=== PATIENT | male | born 1965 | race Caucasian/White ===

== ENCOUNTER → 2022-12-27 12:04 | Outpatient (BNVA) | payer SELFPAY | PROVIDERS: Visit Provider Nurse Practitioner Family | DX: J06.9 Acute upper respiratory infection, unspecified (principal); R73.03 Prediabetes | CPT/HCPCS: 80053; 83036; 85025 ==

== ENCOUNTER 2023-08-07 09:44 | Observation (INO) | payer SELFPAY ==
[2023-08-07] VITALS (8 sets, daily range): BP systolic 104–153; BP diastolic 73–116; PULSE 79–117; RESP 16–22; TEMP 36.7–37.1; O2SAT 95–100; BMI 33.3; BMI 33.2
--- NOTE | 2023-08-07 12:05 | PC.NURSE ---
per lab, attempted to draw x2. pt refused further lab draw until IV start
--- NOTE | 2023-08-07 12:24 | CT_ITS ---
WS: [id number] CT ABDOMEN AND PELVIS WITH CONTRAST HISTORY: abd pain TECHNIQUE: Imaging performed of the abdomen and pelvis with IV contrast. Single phase imaging of the abdomen. Coronal and sagittal reformats are submitted. All CT scans at [facility] use at [address] one of these dose optimization techniques: automated exposure control; mA and/or kV adjustment per patient size (includes targeted exams where dose is matched to clinical indication); or iterative re construction. IV CONTRAST: Omnipaque 350; 100 mL IV. Oral contrast: No DLP: 878.75 mGy.cm COMPARISON: None available. Lower thorax: Lungs are clear. Heart is normal size. Small hiatal hernia. Liver/biliary system: Focal fatty sparing along the falciform ligament. No duct dilatation. Gallbladder: Normal. No gallstones or wall thickening. No pericholecystic fluid. Pancreas: Normal size pancreas and pancreatic duct. No adjacent inflammation. Spleen: Normal size spleen. No mass or infarct. Adrenal glands: Normal. Right kidney: Too small to characterize cortical hypodensities. No obstruction or solid mass. Left kidney: Normal. Aorta: Mild atherosclerosis with no aneurysm. Lymphadenopathy: There is several small but enlarged and hypervascular lymph nodes in the RIGHT upper quadrant associated with the duodenal C-loop. Largest lymph node measures 1.6 cm. Free fluid: None. GI tract: Stomach is nondistended. In the duodenal C-loop there is abnormal enhancement and submucosa l edema. There is a small ulceration extending into the submucosa. This ulceration contains air and a small amount of fluid. There is duodenitis. There are adjacent small lymph nodes. These lymph nodes are hypervascular and increased in number. The remaining GI tract is negative. Abdominal wall: Unremarkable abdominal wall. No hernia. Pelvis: No free fluid or adenopathy within the pelvis. Bones: Prior LEFT hip arthroplasty. Osteonecrosis RIGHT femoral head. IMPRESSION: 1. Abnormal duodenum. Duodenal inflammation within acute ulceration. There is no free air but there are several small but enlarged hypervascular lymph nodes in the RIGHT upper quadrant. No perforation is evident. There is no free air. No abscess. As patient's acute episode of duodenitis/ulceration imp roves consider evaluation by endoscopy to exclude an underlying mass. 2. No additional acute abnormalities.
[2023-08-07 12:51] LABS: Basophils # 0.1 10^3/uL (0.0-0.1); Basophils % 0.6 %; Eosinophils # 0.1 10^3/uL (0.0-0.8); Eosinophils % 1.4 %; Lymphocytes # 2.1 10^3/uL (0.8-4.8); Lymphocytes % 24.2 %; Mean Corpuscular HGB Conc 35.6 g/dL (30-55); Mean Corpuscular Hemoglobin 30.9 pg (27-33); Mean Corpuscular Volume 86.7 fl (82-101); Mean Platelet Volume 11.1 fL (7.4-10.4); Monocytes # 0.8 10^3/uL (0.2-0.9); Monocytes % 9.6 %; Neutrophils # 5.46 10^3/uL (1.8-7.7); Neutrophils % 63.8 %; Nucleated Red Blood Cells % 0 %; Platelet Count 264 10^3/cmm (157-399); Red Blood Count 4.73 10^6/uL (3.85-5.65); Red Cell Distribution Width 11.7 % (12.1-15.1); White Blood Count 8.55 10^3/uL (3.29-11.43)
[2023-08-07 13:02] LABS: Alanine Aminotransferase 32 U/L (0-41); Albumin Level 4.1 g/dL (3.5-5.2); Alkaline Phosphatase 61 U/L (40-130); Anion Gap 15.6 (5-19); Aspartate Amino Transferase 19 U/L (0-40); Blood Urea Nitrogen 16 mg/dL (6-20); Calcium 9.6 mg/dL (8.5-10.5); Carbon Dioxide 28 mmol/L (22-29); Chloride 93 mmol/L (98-107); Creatinine Clr Calc Pharmacy 93.1154; Globulin 3.7 g/dL (1.3-4.6); Glucose 106 mg/dL (65-115); Lipase 85 U/L (13-60); Osmolality Calculated 278 mOsm/kg (285-295); Potassium 3.6 mmol/L (3.5-5.1); Sodium 133 mmol/L (136-145); Total Bilirubin 0.6 mg/dL (0.15-1.2); Total Protein 7.8 g/dL (6.6-8.7)
--- NOTE | 2023-08-07 13:08 | ED_ITS ---
HPI - Nausea/Vomiting/Diarrhea 2 General: Chief complaint: Nausea/Vomiting/Diarrhea Stated complaint: abd pain Time Seen by Provider: 08/07/23 12:22 History of Present Illness: 57-year-old male presents emerged part w ith complaints of intermittent nausea and vomiting for the previous 3 weeks. He states that he has not been able to keep anything down for the previous 8 days. He states that 2 or 3 days ago he felt something pull in the upper part of his stomach after he had an episode of nausea and vomiting and states that he had a tearing type sensation and since that time he has not been able to keep anything down whatsoever. He states he also feels like he has had dark-colored stools but states he is not noted any active bleeding. He states he currently feels nauseated. He denies dizziness or lightheaded feeling. He states his current discomfort is a 4 out of 10. Associated nausea: Yes Associated symtoms: Reports nausea Review of Systems 2 General: Reports: 10 or more systems reviewed and unremarkable except in HPI and below GI: Reports: abdominal pain, nausea and vomiting Physical Exam 2 Narrative: EXAM NARRATIVE: Constitutional: the patient appears well nourished and of normal development. Vital signs as documented. No acute distress at present. Alert and oriented-to person, place, time and situation. Head, eyes, ears, nose, mouth, throat: Normocephalic, atraumatic. Pupils-equal, round, reactive to light. No scleral icterus. Normal-appearing external ears. Normal appearing nasal turbinates, no drainage. No obvious oral lesions, posterior oropharynx without erythema or exudates. Neck: Supple, trachea is midline, no lymphadenopathy, no jugular venous distension, thyromegaly, or carotid bruits. Carotid upstrokes are brisk bilaterally. Lungs: clear to auscultation to all lung lewis. Symmetrical rise and fall of chest, no obvious signs of increased work of breathing at present. Cardiac: Regular rate and rhythm, positive S1, S2. No murmurs, rubs or gallops that I can appreciate Abdomen: Soft, slightly tender to palpation to the epigastric region., normal active bowel sounds to all quadrants. No palpable masses, no organomegaly and abdominal bruits. Extremities: 2+ pulses in the upper extremities that are equal bilaterally, 2+ pulses in the lower extremities that are equal bilaterally. Non-edematous. Moves all extremities well, sensation to all extremities are noted. Skin: Warm, dry, intact. Course 2 Vital Signs: Vital signs: Vital Signs Temperature 98.0 F 08/07/23 09:58 Pulse Rate 96 08/07/23 15:02 Respiratory Rate 17 08/07/23 09:58 Blood Pressure 135/82 08/07/23 15:02 Pulse Oximetry 99 08/07/23 15:02 Oxygen Delivery Me thod Room Air 08/07/23 15:02 MDM - Nausea/Vomiting/Diarrhea Medical Decision Making Physical exam completed and documented, I will obtain laboratory evaluation to include a CBC, CMP, lipase, urinalysis, and a CT scan of the patient's abdomen pelvis to evaluate for possible differential diagnosis of bowel obstruction, incarcerated hernia, abdominal wall strain, abdominal wall hematoma, constipation, gastroenteritis, colitis, pancreatitis. I did speak with the general surgeon Dr. Ruiz regarding the patient's presentation and laboratory and radiographic findings and he stated he would follow-up with the patient outpatient requested I contact the internal medicine service to request admission to the hospitalist for additional evaluation and treatment. Medical Records I reviewed the patient's medical records. Lab Data I reviewed the patient's lab results. 08/07/23 12:40 08/07/23 12:40 Laboratory Results WBC 8.55 10^3/uL (3.29-11.43) 08/07/23 12:40 RBC 4.73 10^6/uL (3.85-5.65) 08/07/23 12:40 Hgb 14.60 g/dL (11.27-16.99) 08/07/23 12:40 Hct 41.0 % (37-53) 08/07/23 12:40 MCV 86.7 fl (82-101) 08/07/23 12:40 MCH 30.9 pg (27-33) 08/07/23 12:40 MCHC 35.6 g/dL (30-55) 08/07/23 12:40 RDW 11.7 % (12.1-15.1) L 08/07/23 12:40 Plt Count 264 10^3/cmm (157-399) 08/07/23 12:40 MPV 11.1 fL (7.4-10.4) H 08/07/23 12:40 Neut % (Auto) 63.8 % 08/07/23 12:40 Lymph % (Auto) 24.2 % 08/07/23 12:40 Nicholas % (Auto) 9.6 % 08/07/23 12:40 Eos % (Auto) 1.4 % 08/07/23 12:40 Baso % (Auto) 0.6 % 08/07/23 12:40 Neut # (Auto) 5.46 10^3/uL (1.8-7.7) 08/07/23 12:40 Lymph # (Auto) 2.1 10^3/uL (0.8-4.8) 08/07/23 12:40 Nicholas # (Auto) 0.8 10^3/uL (0.2-0.9) 08/07/23 12:40 Eos # (Auto) 0.1 10^3/uL (0.0-0.8) 08/07/23 12:40 Baso # (Auto) 0.1 10^3/uL (0.0-0.1) 08/07/23 12:40 Nucleated RBC % (auto) 0 % 08/07/23 12:40 Nucleated RBCs # 0.0 /100WBC 08/07/23 12:40 Sodium 133 mmol/L (136-145) L 08/07/23 12:40 Potassium 3.6 mmol/L (3.5-5.1) 08/07/23 12:40 Chloride 93 mmol/L (98-107) L 08/07/23 12:40 Carbon Dioxide 28 mmol/L (22-29) 08/07/23 12:40 Anion Gap 15.6 (5-19) 08/07/23 12:40 BUN 16 mg/dL (6-20) 08/07/23 12:40 Creatinine 1.0 mg/dL (0.7-1.2) 08/07/23 12:40 GFR Calculation 77.0 mL/min (90-130) L 08/07/23 12:40 Glucose 106 mg/dL (65-115) 08/07/23 12:40 Calculated Osmolality 278 mOsm/kg (285-295) L 08/07/23 12:40 Calcium 9.6 mg/dL (8.5-10.5) 08/07/23 12:40 Total Bilirubin 0.6 mg/dL (0.15-1.2) 08/07/23 12:40 AST 19 U/L (0-40) 08/07/23 12:40 ALT 32 U/L (0-41) 08/07/23 12:40 Alkaline Phosphatase 61 U/L (40-130) 08/07/23 12:40 Total Protein 7.8 g/dL (6.6-8.7) 08/07/23 12:40 Albumin 4.1 g/dL (3.5-5.2) 08/07/23 12:40 Globulin 3.7 g/dL (1.3-4.6) 08/07/23 12:40 Lipase 85 U/L (13-60) H 08/07/23 12:40 All radiology interpretation(s) finalized by discharge Discharge Plan Discharge Patient Disposition: Admitted As Inpatient Clinical Impression: Duodenal ulcer, Duodenitis, Abdominal pain Condition: Stable Prescriptions: No Action amoxicillin-pot clavulanate 875-125 mg tablet 1 tab PO BID Qty: 14 0RF Coding Level of Care Code ED 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
[2023-08-07] MEDS: iohexol 350 mg/mL 500 mL Btl (per mL) IV (13:20)
[2023-08-07] MEDS: ondansetron 2 mg/ML SDV 2 mL 4 MG IVP (13:31)
[2023-08-07] MEDS: sodium chloride 0.9% 1,000 ML 999 ML IV (13:32)
[2023-08-07] MEDS: pantoprazole 40 mg SDV IVP ×2 (14:55→21:05)
[2023-08-07] MEDS: sucralfate 1 gm Tablet PO (14:57)
[2023-08-07] MEDS: piperacillin-tazobactam 3.375 GM in sodium chloride 0.9% (plus) 50 ML IV ×2 (14:59→23:31)
--- NOTE | 2023-08-07 15:13 | PC.PHAR ---
PT STATES HE TAKES NO PRESCRIPTION OR OTC MEDICATIONS-
--- NOTE | 2023-08-07 15:15 | PM.HP ---
Providers/Chief Complaint Chief Complaint: abd pain History of Present Illness Roc Gallegos is a 57 year old male with no significant past medical history, who presents to [facility] due to feeling nausea, vomiting, severe GERD like symptoms abdominal pain. Currently patient tells me that for the last 2 days he has had a lot of abdominal nausea, vomiting, severe acid reflux like symptoms, epigastric discomfort, no smoking history does chew tobacco does use marijuana no alcohol history, denies using any NSAIDs, he has never had a colonoscopy he does report episodes of black tarry stools, no family history of colon cancer Review of Systems Const: Denies: fever(s) Card: Denies: chest pain Resp: Denies: dyspnea GI: Reports: abdominal pain Medications/Allergies Home Medications Medication Instructions Recorded Confirmed Last Taken Type No Known Home Medications 08/07/23 08/07/23 Unknown History Allergies Allergy/AdvReac Type Severity Reaction Status Date / Time No Known Allergies Allergy Verified 08/07/23 15:13 PFSH Acute PFSH: Medical History (Updated 08/07/23 @ 15:20 by Bull Graham MD) No pertinent past medical history Surgical History (Updated 08/07/23 @ 15:17 by Bull Graham MD) History of left hip replacement Family History (Updated 08/07/23 @ 15:17 by Bull Graham MD) Father Renal cancer Father Lung cancer Social History (Updated 08/07/23 @ 15:18 by Bull Graham MD) Smoking and tobacco/nicotine status: never used tobacco/nicotine Alcohol intake: current Alcohol intake frequency: few times a month Substance/Drug Use: never Vitals/I&O/Wt Last Vital Signs Temp 98.0 F 08/07/23 09:58 Pulse 96 08/07/23 15:02 Resp 17 08/07/23 09:58 BP 135/82 08/07/23 15:02 Pulse Ox 99 08/07/23 15:02 O2 Del Method Room Air 08/07/23 15:02 08/07/23 08/07/23 08/07/23 06:59 14:59 22:59 Intake Total 1000 / 1000 Balance 1000 / 1000 Weight last 48 hrs Weight 99.337 kg Physical Exam Const: COMMON NORMALS: no acute distress and patient oriented x3 HENMT: COMMON NORMALS: normocephalic HEAD & SCALP: normocephalic Neck/C-Spine: COMMON NORMALS: no JVD Resp: COMMON NORMALS: normal respiratory effort, No retractions, No use of accessory muscles and clear to auscultation bilaterally AUSCULTATION: clear to auscultation bilaterally Cardio: COMMON NORMALS: no JVD, regular rate, regular rhythm, S1 normal heart sound present and S2 normal heart sound present RATE: regular rate RHYTHM: regular rhythm HEART SOUNDS: S1 normal heart sound present and S2 normal heart sound present GI: COMMON NORMALS: Normal to inspection, nondistended, normoactive bowel sounds present, Soft to palpation and non-tender PALPATION: Yes Soft to palpation and Yes No hepatosplenomegaly present Extremity: COMMON NORMALS: no calf tenderness and no pedal edema Neuro: COMMON NORMALS: patient oriented x3, CN's II-XII intact bilaterally and moves all extremities Psych: COMMON NORMALS: mental status grossly normal Data 08/07/23 12:40 08/07/23 12:40 A&P Assessment and plan (1) Duodenal ulcer: (2) Duodenitis: (3) Abdominal pain: Qualifiers: Abdominal location: epigastric Qualified Code(s): R10.13 - Epigastric pain (4) GI bleed: Plan Abdominal pain ? With severe GERD like symptoms, nausea, vomiting, black tarry stools, epigastric discomfort ? CT scan ?IMPRESSION: 1. Abnormal duodenum. Duodenal inflammation within acute ulceration. There is no free air but there are several small but enlarged hypervascular lymph nodes in the RIGHT upper quadrant. No perforation is evident. There is no free air. No abscess. As patient's acute episode of duodenitis/ulceration improves consider evaluation by endoscopy to exclude an underlying mass. 2. No additional acute abnormalities ? Concerns for duodenitis duodenal ulcer ? Plan ? Keep on clear liquids for now ? Protonix 40 IV twice daily ? Carafate 1 g every 6 hours ? Serial abdominal exams ? Monitor hemoglobin ? Iron studies ? code status DNR/DNI, confirmed with patient multiple times, he says his has passed, and kids are out of state living family life ? SCDs for DVT prophylaxis, Lovenox relatively contraindicated given concerns for GI bleed Attestations Medical Necessity Statement*: Patient requires hospitalization, outpatient observation, for duodenitis, duodenal ulcer, abdominal pain, nausea vomiting, black tarry stools, Diagnoses Duodenal ulcer K26.9 Duodenitis K29.80 Abdominal pain R10.13 Abdominal location: epigastric GI bleed K92.2
[2023-08-07 15:37] LABS: Erythrocyte Sedimentation Rate 9 mm/hr (0-10)
[2023-08-07 15:57] LABS: C Reactive Protein 25.7 mg/L (0.0-4.9); Ferritin 844 ng/mL (30-400); Iron 26 ug/dL (59-158)
[2023-08-07 15:59] LABS: INR 0.95 (0.8-1.2)
[2023-08-07 16:04] LABS: Procalcitonin 0.07 ng/mL (0-0.5)
[2023-08-07 17:19] LABS: Add Urine Microscopic? YES; Bilirubin Urine Neg (Negative); Blood Urine Neg (Negative); Glucose Urine UA Norm (Normal); Ketones Urine 1+ (Negative); Leukocyte Esterase Urine Negative (Negative); Nitrate Urine Negative (Negative); Protein Urine 1+ (Negative); Specific Gravity, Urine 1.015 (1.005-1.030); Urine Appearance Clear (CLEAR); Urine Color Yellow (Yellow); Urobilinogen Urine Norm (Negative); pH Urine 5 (5-7)
--- NOTE | 2023-08-07 17:19 | P.CONIM_ITS ---
Providers/Reason For Consult 2 Consulting Physician/Specialty*: General surgery Reason for Consult*: Duodenal ulcer with duodenitis Attending Physician: Bull Graham MD History of Present Illness History of Present Illness Roc Gallegos is a 57 year old male who presents to the emergency department complaining about 3 to 4 months of epigastric abdominal pain that has progressively worsened and has been associated with emesis, poor p.o. tolerance and dark stools. Patient explained that since January 2023 he has been having some significant upper abdominal pain that has been intermittent in nature but over the last 2 to 3 months it has become persistent, patient has been at different hospitals numerous times where he has received IV hydration and immediately sent home without additional workup and therefore since his symptoms have been worsening and he is unable to tolerate p.o. he decided to present to our hospital. Review of Systems 2 General: Reports: 10 or more systems reviewed and unremarkable except in HPI and below Medications/Allergies Home Medications Medication Instructions Recorded Confirmed Last Taken Type No Known Home Medications 08/07/23 08/07/23 Unknown History Allergies Allergy/AdvReac Type Severity Reaction Status Date / Time No Known Allergies Allergy Verified 08/07/23 15:13 PFSH Acute 2 PFSH: Medical History (Updated 08/07/23 @ 15:20 by Bull Graham MD) No pertinent past medical history Surgical History (Updated 08/07/23 @ 15:17 by Bull Graham MD) History of left hip replacement Family History (Updated 08/07/23 @ 15:17 by Bull Graham MD) Father Renal cancer Father Lung cancer Social History (Updated 08/07/23 @ 15:18 by Bull Graham MD) Smoking and tobacco/nicotine status: never used tobacco/nicotine Alcohol intake: current Alcohol intake frequency: few times a month Substance/Drug Use: never Vitals/I&O/Wt Last Vital Signs Temp 98.0 F 08/07/23 09:58 Pulse 90 08/07/23 16:32 Resp 17 08/07/23 09:58 BP 104/80 08/07/23 16:32 Pulse Ox 98 08/07/23 16:32 O2 Del Method Room Air 08/07/23 16:32 08/07/23 08/07/23 08/07/23 06:59 14:59 22:59 Intake Total 1000 / 1000 Balance 1000 / 1000 Weight last 48 hrs Weight 219 lb Physical Exam 2 Narrative: General : Patient is well developed , no acute distress, oriented x3 Head : Normal cephalic, a-traumatic. Nose : Mucous membranes are without erythema. Lungs : Equal chest rise bilaterally, no use of accessory muscles, trachea is midline. CV : Rate and rhythm are normal. Abdomen : Soft, there is epigastric tenderness, no rebound tenderness. Extremities : No edema. Upper extremities are normal bilaterally. Back : non-tender to palpation, no CVA tenderness. Data 08/07/23 12:40 08/07/23 12:40 A&P Assessment and plan (1) Duodenal ulcer: (2) Duodenitis: Plan After complete history, physical examination and review of all available clinical data the following is my assessment. Patient does have a duodenal ulcer with duodenitis which has been verified by imaging. Does not appear to have active bleeding his hemoglobin is 14.6 today. All other vital signs and laboratory workup are unremarkable. At this point I think it would be important to proceed with aggressive PPI therapy for management of the duodenal ulcer with duodenitis, to prevent it from progressing to perforation of the duodenum. I have explained to the patient that he will require an endoscopy but I will plan to do this on a subacute basis as endoscopic evaluation at this time we will active inflammation in the second portion of the duodenum can result in a perforation which will likely result in severe morbidity and even mortality for this patient. Therefore we will start the patient on clear liquid diet and will do twice a day IV PPI as well as 4 times a day Carafate for the next 48 hours. After that the patient is tolerating diet and feeling well we will plan to discharge patient home on twice a day PPI as well as Carafate and I will follow up with him in about 4 weeks to proceed with an endoscopic evaluation and biopsy of this ulcer location. This to minimize the risks of perforation during the acute phase of duodenitis. In the case of evidence of bleeding or any other additional concerning features I will be more inclined to proceed with endoscopy during this hospital stay. Patient shows understanding agrees with the plan. The plan has also been communicated to the medical team. Coding Level of Care Code 29301 Diagnoses Duodenal ulcer K26.9 Duodenitis K29.80
[2023-08-07 17:21] LABS: Add Urine Culture? No; Mucus Urine TRACE /hpf; RBC Urine RARE /hpf (0-2); WBC Urine 0-4 /hpf (0-5)
[2023-08-07 17:52] LABS: Lactic Sepsis W/Reflex 1.1 mmol/L (0.5-2.2)
[2023-08-07] MEDS: sodium chloride 0.9% 1,000 ML 75 ML IV (18:29)
[2023-08-07 19:03] LABS: Thyroid Stimulating Hormone 3.47 uIU/mL (0.27-4.20)
[2023-08-07] MEDS: acetaminophen 325 mg Tablet 650 MG PO (19:22)
[2023-08-07] MEDS: sucralfate 1 gm/10 mL Oral Liq UDC PO (21:04)
[2023-08-08] VITALS: BP 128/73; PULSE 78; RESP 20; TEMP 36.9; O2SAT 95
[2023-08-08] MEDS: sucralfate 1 gm/10 mL Oral Liq UDC PO ×4 (02:06→20:30)
[2023-08-08 04:00] VITALS: BP 137/81; PULSE 76; RESP 20; TEMP 36.3; O2SAT 97
[2023-08-08 05:18] LABS: Basophils % 0.6 %; Eosinophils # 0.2 10^3/uL (0.0-0.8); Eosinophils % 3.2 %; Hematocrit 33.9 % (37-53); Lymphocytes # 2.8 10^3/uL (0.8-4.8); Lymphocytes % 45.1 %; Mean Corpuscular HGB Conc 34.8 g/dL (30-55); Mean Corpuscular Hemoglobin 30.8 pg (27-33); Mean Corpuscular Volume 88.5 fl (82-101); Mean Platelet Volume 11.1 fL (7.4-10.4); Monocytes # 0.6 10^3/uL (0.2-0.9); Monocytes % 9.1 %; Neutrophils # 2.56 10^3/uL (1.8-7.7); Neutrophils % 41.5 %; Nucleated Red Blood Cells % 0 %; Platelet Count 215 10^3/cmm (157-399); Red Blood Count 3.83 10^6/uL (3.85-5.65); Red Cell Distribution Width 11.8 % (12.1-15.1); White Blood Count 6.17 10^3/uL (3.29-11.43)
[2023-08-08 05:39] LABS: Blood Urea Nitrogen 12 mg/dL (6-20); Calcium 8.3 mg/dL (8.5-10.5); Carbon Dioxide 26 mmol/L (22-29); Chloride 102 mmol/L (98-107); Creatinine Clr Calc Pharmacy 105.9162; Glucose 97 mg/dL (65-115); Osmolality Calculated 284 mOsm/kg (285-295); Sodium 137 mmol/L (136-145)
[2023-08-08 05:41] LABS: Anion Gap 12.8 (5-19); Potassium 3.8 mmol/L (3.5-5.1)
[2023-08-08] MEDS: piperacillin-tazobactam 3.375 GM in sodium chloride 0.9% (plus) 50 ML IV ×3 (06:48→22:52)
[2023-08-08 08:00] VITALS: BP 111/71; PULSE 78; RESP 16; TEMP 36.8; O2SAT 97
[2023-08-08] MEDS: pantoprazole 40 mg SDV IVP ×2 (09:17→20:56)
[2023-08-08] MEDS: sodium chloride 0.9% 1,000 ML 75 ML IV ×2 (09:17→22:52)
[2023-08-08 12:00] VITALS: BP 126/76; PULSE 77; RESP 16; TEMP 36.8; O2SAT 98
--- NOTE | 2023-08-08 12:06 | P.PN_ITS ---
Subjective 2 Subjective: 57-year-old male admitted with duodeniti s and duodenal ulcer who is receiving conservative management. Patient doing well abdominal exam has improved over the last 24 hours. Patient is concerned regarding the cause of care and is also concerned about ability to afford prescriptions when he leaves the hospital. Pertinent data and other significant complaints Vitals/I&O/Wt Last Vital Signs Temp 98.3 F 08/08/23 08:00 Pulse 78 08/08/23 08:00 Resp 16 08/08/23 08:00 BP 111/71 08/08/23 08:00 Pulse Ox 97 08/08/23 08:00 O2 Del Method Room Air 08/08/23 04:00 08/07/23 08/08/23 08/08/23 22:59 06:59 14:59 Intake Total 1290 / 1290 290 / 1580 1050 / 1050 Output Total 610 / 610 Balance 1290 / 1290 -320 / 970 1050 / 1050 Weight last 48 hrs Weight 229 lb 9 oz Weight 218 lb 11.2 oz Weight 219 lb Physical Exam 2 GI: OTHER: Abdomen is soft, nontender, nondistended. Data 08/08/23 04:39 08/08/23 04:39 A&P Assessment and plan (1) Duodenal ulcer: (2) Duodenitis: Plan Patient shows very good progression of duodenitis with duodenal ulcer that is being managed with high-dose PPIs and Carafate. I had extensive discussion with the patient regarding need of hospital stay due to the possibility of progression to perforation the patient goes home and does not follow instructions. Patient shows understanding will stay in the hospital at least until tomorrow. We will attempt to obtain medication from the pharmacy and doing meds to beds so he has sold medication before he leaves the hospital. As previously discussed in 6 weeks I will proceed with upper endoscopy to ensure healing of the ulcer and to take biopsies of the area Attestations 2 Medical Necessity Statement*: Patient will require 24 to 48 hours of hospital stay for management of duodenitis with duodenal ulcer. Coding Level of Care Code Acute Code for [facility] Diagnoses Duodenal ulcer K26.9 Duodenitis K29.80
--- NOTE | 2023-08-08 14:53 | P.PN_ITS ---
Subjective 2 Subjective: Patient was seen this morning, initially patient was quite adamant about going home, he tells me that he is tired of being on clear liquids, I discussed with him the morbidity and mortality associate with his duodenitis and concerns for duodenal ulcer the risk of perforation, the morbidity mortality associated, I recommend for him to stay here in the hospital but he was adamant about going home, we discussed the morbidity and mortality associated with leaving AGAINST MEDICAL ADVICE, he voiced understanding, all questions answered, I discussed with him the reason why he is on clear liquids is to decrease the risk of perforation of the duodenal ulcer he is on Protonix and Carafate were watching him very closely I recommend further inpatient monitoring, he was a bit more calm, but still wanted to go home, general surgery spoke with patient, he is more agreeable to stay in the hospital for closer monitoring Vitals/I&O/Wt Last Vital Signs Temp 98.2 F 08/08/23 12:00 Pulse 77 08/08/23 12:00 Resp 16 08/08/23 12:00 BP 126/76 08/08/23 12:00 Pulse Ox 98 08/08/23 12:00 O2 Del Method Room Air 08/08/23 04:00 08/07/23 08/08/23 08/08/23 22:59 06:59 14:59 Intake Total 1290 / 1290 290 / 1580 1290 / 1290 Output Total 610 / 610 Balance 1290 / 1290 -320 / 970 1290 / 1290 Weight last 48 hrs Weight 104.128 kg Weight 99.201 kg Weight 99.337 kg Physical Exam 2 Const: COMMON NORMALS: no acute distress and patient oriented x3 Resp: COMMON NORMALS: normal respiratory effort, No retractions, No use of accessory muscles and clear to auscultation bilaterally AUSCULTATION: clear to auscultation bilaterally Cardio: COMMON NORMALS: regular rate, regular rhythm, S1 normal heart sound present and S2 normal heart sound present RATE: regular rate RHYTHM: r egular rhythm HEART SOUNDS: S1 normal heart sound present and S2 normal heart sound present GI: COMMON NORMALS: Normal to inspection, nondistended, normoactive bowel sounds present and non-tender Extremity: COMMON NORMALS: no calf tenderness and no pedal edema Neuro: COMMON NORMALS: patient oriented x3 Psych: COMMON NORMALS: mental status grossly normal Data 08/08/23 04:39 08/08/23 04:39 A&P Assessment and plan (1) Duodenal ulcer: (2) Duodenitis: (3) Abdominal pain: Qualifiers: Abdominal location: epigastric Qualified Code(s): R10.13 - Epigastric pain (4) GI bleed: Plan Abdominal pain ? With severe GERD like symptoms, nausea, vomiting, black tarry stools, epigastric discomfort ? CT scan ?IMPRESSION: 1. Abnormal duodenum. Duodenal inflammation within acute ulceration. There is no free air but there are several small but enlarged hypervascular lymph nodes in the RIGHT upper quadrant. No perforation is evident. There is no free air. No abscess. As patient's acute episode of duodenitis/ulceration improves consider evaluation by endoscopy to exclude an underlying mass. 2. No additional acute abnormalities ? Concerns for duodenitis duodenal ulcer ? Plan ? Keep on clear liquids for now ? Protonix 40 IV twice daily ? Carafate 1 g every 6 hours ? Serial abdominal exams ? Monitor hemoglobin ? Iron studies ? code status DNR/DNI, confirmed with patient multiple times, he says his has passed, and kids are out of state living family life ? SCDs for DVT prophylaxis, Lovenox relatively contraindicated given concerns for GI bleed Attestations 2 Medical Necessity Statement*: Patient requires hospitalization for duodenitis, duodenal ulcer concerns Diagnoses Duodenal ulcer K26.9 Duodenitis K29.80 Abdominal pain R10.13 Abdominal location: epigastric GI bleed K92.2
[2023-08-08 16:00] VITALS: BP 128/80; PULSE 63; RESP 15; TEMP 36.7; O2SAT 96
[2023-08-08 20:00] VITALS: BP 115/73; PULSE 78; RESP 16; TEMP 36.9; O2SAT 98
--- NOTE | 2023-08-08 23:16 | PC.NURSE ---
pt got cookies out of vending machine and was drinking [employer]epsi. reminded of ulcer and pt stated i just want to nibble not really eat, I just want to see if I could taste it, i probably won't really eat enough of it
[2023-08-09] VITALS: BP 125/68; PULSE 73; RESP 16; TEMP 37; O2SAT 98
[2023-08-09] MEDS: sucralfate 1 gm/10 mL Oral Liq UDC PO ×2 (02:55→08:46)
[2023-08-09 04:00] VITALS: BP 119/81; PULSE 81; RESP 16; TEMP 36.8; O2SAT 98
[2023-08-09] MEDS: piperacillin-tazobactam 3.375 GM in sodium chloride 0.9% (plus) 50 ML IV (06:00)
[2023-08-09 06:08] LABS: Basophils # 0.1 10^3/uL (0.0-0.1); Eosinophils # 0.2 10^3/uL (0.0-0.8); Eosinophils % 3.6 %; Hematocrit 32.1 % (37-53); Lymphocytes # 2.2 10^3/uL (0.8-4.8); Lymphocytes % 36.2 %; Mean Corpuscular HGB Conc 35.2 g/dL (30-55); Mean Corpuscular Hemoglobin 31.6 pg (27-33); Mean Corpuscular Volume 89.7 fl (82-101); Mean Platelet Volume 10.7 fL (7.4-10.4); Monocytes # 0.6 10^3/uL (0.2-0.9); Monocytes % 10.2 %; Neutrophils # 2.97 10^3/uL (1.8-7.7); Neutrophils % 48.8 %; Nucleated Red Blood Cells % 0 %; Platelet Count 209 10^3/cmm (157-399); Red Blood Count 3.58 10^6/uL (3.85-5.65); Red Cell Distribution Width 11.9 % (12.1-15.1); White Blood Count 6.08 10^3/uL (3.29-11.43)
[2023-08-09 06:27] LABS: Anion Gap 9.8 (5-19); Blood Urea Nitrogen 7 mg/dL (6-20); Calcium 8.3 mg/dL (8.5-10.5); Carbon Dioxide 27 mmol/L (22-29); Chloride 106 mmol/L (98-107); Creatinine Clr Calc Pharmacy 95.7506; Glucose 93 mg/dL (65-115); Osmolality Calculated 286 mOsm/kg (285-295); Potassium 3.8 mmol/L (3.5-5.1); Sodium 139 mmol/L (136-145)
[2023-08-09 07:44] VITALS: BP 115/66; PULSE 82; RESP 14; TEMP 36.4; O2SAT 96
[2023-08-09] MEDS: pantoprazole 40 mg SDV IVP (08:45)
--- NOTE | 2023-08-09 09:08 | PC.CHAP ---
Pastoral Care Encounter/Spiritual Assessment Type of Contact [] Declined bowl topper visit [] Patient/Family/Request visit [] Outpatient visit [] Follow-up visit [] Physician referral [] Code/Alert [] Routine visit [] Staff referral [] Actively dying [] Patient sleeping [] Family support [] [] Out of room [] Palliative care [] [] Receiving care in room [] Pre-surgical visit [] Trauma [] Long length of stay [] ICU visit [] Other: Relational/Emotional Strength [] Patient feels connected with others/family/visitors/staff [] Distress [] Loneliness/isolation [] Abandonment Spirituality of Patient [] Person of Mavis [] Attends Jainism of their Mavis [] Believes in Prayer [] Reads Bible or Church materials [x] There are Spiritual issues to be addressed Skeet Operator Interventions [] Prayer [] Active listening [x] Non-anxious presence [] Spiritual/emotional support [] Crisis/trauma care [] Spiritual counseling [] Bereavement support [] Provided bereavement packet [] Provided Bible/devotional materials [] Provided toy/stuffed animal, coloring book to patient or family member [] Provided Communion [] Anointing/Bailey [] Salvation [x] Completed spiritual assessment [x] Other:Declined prayer. Impact on Illness or Injury [] Angry [] Fearful [] Anxious [] Often cries [] Exhaustion [] Unable to work [] Unable to attend yarsani [] Unable to walk/stand [] Unable to read [] Unable to drive [] Unable to eat/drink [] Unable to sleep [] Unable to be with family [] Patient intubated [] Other: Summary Time spent with patient 5 min
--- NOTE | 2023-08-09 09:41 | P.PN_ITS ---
Subjective 2 Subjective: This is a 57-year-old male admitted for management of duodenitis and large duodenal ulcer. Patient is doing well over the last 24 hours, abdominal burning has improved. Patient states that he is not interested in staying in the hospital for longer time, he is willing to take the medications and following the treatment plan but as an outpatient. He endorses still having some abdominal pain but no significant worsening. Has been able to tolerate diet but he does not like the hospital food Vitals/I&O/Wt Last Vital Signs Temp 97.6 F 08/09/23 07:44 Pulse 82 08/09/23 07:44 Resp 14 08/09/23 07:44 BP 115/66 08/09/23 07:44 Pulse Ox 96 08/09/23 07:44 O2 Del Method Room Air 08/09/23 07:44 08/08/23 08/09/23 08/09/23 22:59 06:59 14:59 Intake Total 1290 / 2580 50 / 2630 Output Total 350 / 350 550 / 900 850 / 850 Balance 940 / 2230 -500 / 1730 -850 / -850 Weight last 48 hrs Weight 231 lb 9.6 oz Weight 229 lb 9 oz Weight 218 lb 11.2 oz Weight 219 lb Physical Exam 2 GI: OTHER: Abdomen is soft, minimally tender in the epigastrium, nondistended, no peritoneal signs. Data 08/09/23 05:57 08/09/23 05:57 A&P Assessment and plan (1) Duodenitis: (2) Duodenal ulcer: Plan This a 57-year-old male who was admitted for medical management of duodenitis and large duodenal ulcer. We started conservative management with antibiotics and bowel rest. patient has single response to treatment and his vital signs have remained stable he is laboratory workup has also been stable. Our medical recommendation was for the patient to stay in the hospital at least for 24 to 48 hours more to ensure adequate progression and for IV PPI therapy. Patient has refused these, he states that he will prefer to go home even if this resolves and deterioration of his clinical condition. Patient agrees to follow all of the instructions, take all the medications and follow-up with me in clinic in 2 weeks to schedule an endoscopy. In addition patient has no insurance at this time and therefore he is looking into getting enrolled into Medicare to be able to continue receiving medical therapy. -Will continue twice a day PPI -Will continue 4 times a day Carafate -Diet recommendations Again given to the patient as well as warning signs Attestations 2 Medical Necessity Statement*: Patient will likely be discharged today, he does not wish to remain in the hospital despite medical recommendation Coding Level of Care Code Acute Code for Chg Fwd Diagnoses Duodenitis K29.80 Duodenal ulcer K26.9
--- NOTE | 2023-08-09 10:57 | PM.DCS ---
Discharge Providers Date of Admission: 08/07/23 16:55 Date of Discharge: August 09, 2023 Attending Provider at Admission: Bull Graham MD Attending Provider at Discharge: Bull Graham MD Diagnoses at Discharge Discharge Diagnosis (1) Duodenitis: Status: Acute (2) Duodenal ulcer: Status: Acute Reason for Visit Reason for Visit: abd pain Hospital Course Hospital Course Roc Gallegos is a 57 year old male with no significant past medical history, who presents to [facility] due to feeling nausea, vomiting, severe GERD like symptoms abdominal pain. Currently patient tells me that for the last 2 days he has had a lot of abdominal nausea, vomiting, severe acid reflux like symptoms, epigastric discomfort, no smoking history does chew tobacco does use marijuana no alcohol history, denies using any NSAIDs, he has never had a colonoscopy he does report episodes of black tarry stools, no family history of colon cancer Abdominal pain ? With severe GERD like symptoms, nausea, vomiting, black tarry stools, epigastric discomfort ? CT scan ?IMPRESSION: 1. Abnormal duodenum. Duodenal inflammation within acute ulceration. There is no free air but there are several small but enlarged hypervascular lymph nodes in the RIGHT upper quadrant. No perforation is evident. There is no free air. No abscess. As patient's acute episode of duodenitis/ulceration improves consider evaluation by endoscopy to exclude an underlying mass. 2. No additional acute abnormalities ? Concerns for duodenitis duodenal ulcer ? Plan ? Keep on clear liquids for now ? Protonix 40 IV twice daily ? Carafate 1 g every 6 hours ? Serial abdominal exams Patient overall clinically improved, had bowel movements no bloody or black stools, no significant hemodynamic compromise, patient was adamant about discharge home, will be discharged on clear liquid diet for at least 48 hours, slowly advance to full liquids then to GI soft diet, avoid caffeine, avoid sodas, avoid spicy foods, avoid anything that is part of the GI system, Protonix, Carafate, antibiotics follow-up with primary care provider as outpatient. Patient will follow-up with Dr. Nazario in 2 weeks. Patient was advised if he has sudden onset abdominal pain, nausea, vomiting, bloody or black stools, or hematemesis to go immediately to the emergency room as this could be a life-threatening sign of perforated duodenal ulcer. Physical Exam Const: COMMON NORMALS: no acute distress and patient oriented x3 Resp: COMMON NORMALS: normal respiratory effort, No retractions, No use of accessory muscles and clear to auscultation bilaterally AUSCULTATION: clear to auscultation bilaterally Cardio: COMMON NORMALS: regular rate, regular rhythm, S1 normal heart sound present and S2 normal heart sound present RATE: regular rate RHYTHM: regular rhythm HEART SOUNDS: S1 normal heart sound present and S2 normal heart sound present GI: COMMON NORMALS: Normal to inspection, nondistended, normoactive bowel sounds present and non-tender Extremity: COMMON NORMALS: no pedal edema Neuro: COMMON NORMALS: patient oriented x3 Psych: COMMON NORMALS: mental status grossly normal Discharge Data Studies Completed and Pending Completed Studies During Hospitalization Category Date Time Status CT abdomen pelvis w con* [id number] Stat Cat Scan 08/07/23 12:24 Completed Pending at discharge Category Date Time Status Basic Metabolic Panel AM LABS Lab 08/10/23 04:00 Ordered C.Diff PCR (Lab) Routine Lab 08/07/23 14:56 Ordered Complete Blood Count w/Auto AM LABS Lab 08/10/23 04:00 Ordered Immunochemical Fecal OCB Routine Lab 08/07/23 14:56 Ordered Lactoferrin Routine Lab 08/07/23 14:56 Ordered OVA and Parasites, Conc and PE Routine Lab 08/07/23 14:56 Ordered Occult Blood Stool [Immunochemical Fecal OCB] Routine Lab 08/07/23 17:52 Uncollected Salmonella / Shigella / Campy Routine Lab 08/07/23 14:56 Ordered Laboratory Results WBC 6.08 10^3/uL (3.29-11.43) 08/09/23 05:57 RBC 3.58 10^6/uL (3.85-5.65) L 08/09/23 05:57 Hgb 11.30 g/dL (11.27-16.99) 08/09/23 05:57 Hct 32.1 % (37-53) L 08/09/23 05:57 MCV 89.7 fl (82-101) 08/09/23 05:57 MCH 31.6 pg (27-33) 08/09/23 05:57 MCHC 35.2 g/dL (30-55) 08/09/23 05:57 RDW 11.9 % (12.1-15.1) L 08/09/23 05:57 Plt Count 209 10^3/cmm (157-399) 08/09/23 05:57 MPV 10.7 fL (7.4-10.4) H 08/09/23 05:57 Neut % (Auto) 48.8 % 08/09/23 05:57 Lymph % (Auto) 36.2 % 08/09/23 05:57 [place] % (Auto) 10.2 % 08/09/23 05:57 Eos % (Auto) 3.6 % 08/09/23 05:57 Baso % (Auto) 1.0 % 08/09/23 05:57 Neut # (Auto) 2.97 10^3/uL (1.8-7.7) 08/09/23 05:57 Lymph # (Auto) 2.2 10^3/uL (0.8-4.8) 08/09/23 05:57 [place] # (Auto) 0.6 10^3/uL (0.2-0.9) 08/09/23 05:57 Eos # (Auto) 0.2 10^3/uL (0.0-0.8) 08/09/23 05:57 Baso # (Auto) 0.1 10^3/uL (0.0-0.1) 08/09/23 05:57 Nucleated RBC % (auto) 0 % 08/09/23 05:57 Nucleated RBCs # 0.0 /100WBC 08/09/23 05:57 ESR 9 mm/hr (0-10) 08/07/23 12:40 PT 12.90 SECONDS (12.1-14.9) 08/07/23 12:40 INR 0.95 (0.8-1.2) 08/07/23 12:40 Sodium 139 mmol/L (136-145) 08/09/23 05:57 Potassium 3.8 mmol/L (3.5-5.1) 08/09/23 05:57 Chloride 106 mmol/L (98-107) 08/09/23 05:57 Carbon Dioxide 27 mmol/L (22-29) 08/09/23 05:57 Anion Gap 9.8 (5-19) 08/09/23 05:57 BUN 7 mg/dL (6-20) 08/09/23 05:57 Creatinine 1.0 mg/dL (0.7-1.2) 08/09/23 05:57 GFR Calculation 77.0 mL/min (90-130) L 08/09/23 05:57 Glucose 93 mg/dL (65-115) 08/09/23 05:57 Calculated Osmolality 286 mOsm/kg (285-295) 08/09/23 05:57 Lactic Acid 1.1 mmol/L (0.5-2.2) 08/07/23 16:45 Calcium 8.3 mg/dL (8.5-10.5) L 08/09/23 05:57 Iron 26 ug/dL (59-158) L 08/07/23 12:40 Ferritin 844 ng/mL (30-400) H 08/07/23 12:40 Total Bilirubin 0.6 mg/dL (0.15-1.2) 08/07/23 12:40 AST 19 U/L (0-40) 08/07/23 12:40 ALT 32 U/L (0-41) 08/07/23 12:40 Alkaline Phosphatase 61 U/L (40-130) 08/07/23 12:40 C-Reactive Protein 25.7 mg/L (0.0-4.9) H 08/07/23 12:40 Total Protein 7.8 g/dL (6.6-8.7) 08/07/23 12:40 Albumin 4.1 g/dL (3.5-5.2) 08/07/23 12:40 Globulin 3.7 g/dL (1.3-4.6) 08/07/23 12:40 Lipase 85 U/L (13-60) H 08/07/23 12:40 Procalcitonin 0.07 ng/mL (0-0.5) 08/07/23 12:40 TSH 3.47 uIU/mL (0.27-4.20) 08/07/23 12:40 Urine Color Yellow (Yellow) 08/07/23 15:40 Urine Appearance Clear (CLEAR) 08/07/23 15:40 Urine pH 5 (5-7) 08/07/23 15:40 Ur Specific [place] 1.015 (1.005-1.030) 08/07/23 15:40 Urine Protein 1+ (Negative) H 08/07/23 15:40 Urine Glucose (UA) Norm (Normal) 08/07/23 15:40 Urine Ketones 1+ (Negative) H 08/07/23 15:40 Urine Blood Neg (Negative) 08/07/23 15:40 Urine Nitrate Negative (Negative) 08/07/23 15:40 Urine Bilirubin Neg (Negative) 08/07/23 15:40 Urine Urobilinogen Norm mg/dL (Negative) 08/07/23 15:40 Ur Leukocyte Esterase Negative (Negative) 08/07/23 15:40 Urine RBC Rare /hpf (0-2) 08/07/23 15:40 Urine WBC 0-4 /hpf (0-5) H 08/07/23 15:40 Ur Squamous Epith Cells None /hpf (0-5) 08/07/23 15:40 Amorphous Sediment Not Reportable 08/07/23 15:40 Urine Bacteria None /hpf (NONE) 08/07/23 15:40 Urine Mucus Trace /hpf 08/07/23 15:40 Vitals Last Vital Signs Temp 97.6 F 08/09/23 07:44 Pulse 82 08/09/23 07:44 Resp 14 08/09/23 07:44 BP 115/66 08/09/23 07:44 Pulse Ox 96 08/09/23 07:44 O2 Del Method Room Air 08/09/23 07:44 Discharge Plan Discharge Patient Disposition: Home Condition: Stable Prescriptions: New sucralfate 100 mg/mL Suspension 1 g PO Q6H 30 Days Qty: 1200 0RF Protonix 40 mg tablet,delayed release (DR/EC) 40 mg PO BID 30 Days Qty: 60 0RF amoxicillin-pot clavulanate 875-125 mg tablet 1 tab PO Q12H 7 Days Qty: 14 0RF Discharge Orders: Discharge Order (Routine); Ordered 08/09/23 Ordered By: Bull Graham Referrals: Aki Ruiz MD [Physician] - 2 weeks Discharge Diet: Clear Liquid Discharge Activity: Resume usual activity Patient Instructions: Full Liquid Diet, Peptic Ulcer (DC), Clear Liquid Diet (DC), Opioid Safety Activity Restrictions/Additional Instructions: -PLEASE ADHERE TO DIET INSTRUCTION YOUR DOUDENAL ULCER HAS A HIGH RISK OF PERFORATION, AND MORBIDITY AND MORTALITY IF YOU DONOT FOLLOW MEDICAL ORDERS -PLEASE TAKE MEDICATIONS PRESCRIBED -IF YOU DEVELOP ABDOMINAL PAIN, BLOODY OR BLACK STOOLS, LACK OF STOOLING, NAUSEA OR VOMITING GO TO EMERGENCY RO0M IMMEDIATELY Discharge Attestations Time Spent in Discharge Care*: greater than 30 min Quality Metrics Clinical Quality Measures [ No reported AMI, CVA or VTE this stay] Coding Level of Care Code 15209 Total time (in minutes) for Discharge: 45 Diagnoses Duodenitis K29.80 Duodenal ulcer K26.9
[2023-08-09 12:51] VITALS: BP 115/66; PULSE 82; RESP 14; TEMP 36.4; O2SAT 96
== END 2023-08-09 11:00 | disposition home or self-care (01) ==
LOC: ER 15:11 → MEDSURG 08-08 06:43
PROVIDERS: Admitting Provider Family Medicine; Emergency Provider Internal Medicine; Visit Provider Family Medicine
DX: K29.80 Duodenitis without bleeding (principal); K26.9 Duodenal ulcer, unspecified as acute or chronic, without hemorrhage or perforation; F17.220 Nicotine dependence, chewing tobacco, uncomplicated; Z66 Do not resuscitate; K92.2 Gastrointestinal hemorrhage, unspecified
CPT/HCPCS: 36415; 74177; 80048; 80053; 81001; 82728; 83540; 83605; 83690; 84145; 84443; 85025; 85610; 85651; 86140; 96361; 96365; 96375; 99285; C9113; G0378; J2405; J2543; J7030; Q9967